=== PATIENT | male | born 1945 | race Caucasian/White ===

== ENCOUNTER → 2016-05-30 | Outpatient (CLI) | payer MEDICARE ==
--- NOTE | 2016-05-30 19:14 | PN ---
DATE OF SERVICE: 05/30/2016 This patient is a 71-year-old gentleman who has been followed in the sleep center for treatment of obstructive sleep apnea/hypopnea syndrome. Patient continues to use CPAP machine every night. Recently he found that there were several episodes during the night when his machine stopped working. I checked his CPAP unit. CPAP pressure is 9 cm of water, RAMP 30 minutes. Usage is every night, with 22 out of 30 nights for more than 4 hours. Apnea-hypopnea index reading from the machine is only 1.2, which is normal. Leak is 16 L/minute, which is acceptable. [place] Sleepiness Scale is 8. MEDICATIONS: 1. Gabapentin. 2. Tramadol. 3. Allopurinol. 4. Flomax. 5. Amlodipine. 6. Levothyroxine. 7. Hydrocodone. 8. Niacin. PHYSICAL EXAMINATION: GENERAL: Patient is in no distress. VITAL SIGNS: BP 140/75, HR 84, RR 16. Height 5 feet 8 inches. Weight 239. BMI 36.3. Neck 17 inches. Temperature 97.6. Oxygen saturation at room air 95%. HEENT: PERRLA, EOMI. Evaluation of oropharynx showed tongue protrudes midline; moderately low position of soft palate. NECK: Supple. No JVD. Thyroid is not palpable. LUNGS: Clear to percussion and to auscultation. Good air exchange. No wheezing or rhonchi. HEART: S1, S2 regular. No murmurs, gallops or rubs. ABDOMEN: Obese. EXTREMITIES: Up to 1+ ankle edema. CASINO SHIFT MANAGER: Awake, alert, and oriented x3. Cranial nerves 2 to 7 intact. There is no fasciculation or atrophy noted. No focal deficits observed. IMPRESSION: 1. Obstructive sleep apnea-hypopnea syndrome. Patient demonstrated good compliance with treatment and is benefitting from treatment. 2. Patient's CPAP unit has had several episodes when it stopped working during the sleep. 3. Hypertension. 4. Hypothyroidism. 5. Allergies. 6. Obesity. Patient's weight has increased by about 5 pounds since his previous visit. PLAN: 1. Prescription to check, if necessary replace, CPAP unit. CPAP pressure 9 cm of water. 2. Losing weight. 3. Sleep hygiene with regular time in bed for at least 8 hours. 4. No driving if feeling any sleepiness. Thank you very much for allowing me to participate in the management of your patient. Sincerely, Roberto Boyer MD, PhD, FAASM. Diplomat of [place] [employer], Sleep Medicine Board by [place] [employer], [place] [employer]
== END | disposition home or self-care (01) ==
LOC: SLEEP 14:48
PROVIDERS: ATTEND Internal Medicine
DX: G47.33 Obstructive sleep apnea (adult) (pediatric) (principal); I10 Essential (primary) hypertension; E03.9 Hypothyroidism, unspecified; Z91.09 Other allergy status, other than to drugs and biological substances; E66.9 Obesity, unspecified; Z68.36 Body mass index [BMI] 36.0-36.9, adult; Z79.899 Other long term (current) drug therapy

== ENCOUNTER → 2018-08-26 | Outpatient (CLI) | payer MEDICARE ==
--- NOTE | 2018-08-26 15:28 | SFUN ---
SLEEP CENTER FOLLOW UP NOTE DATE OF SERVICE: 08/26/2018 A 73-year-old gentleman who has been followed in the Sleep Center for treatment of obstructive sleep apnea-hypopnea syndrome. The patient continued to use his CPAP equipment every night but recently started to feel some headache in the morning after using CPAP in the sinuses area. [place] Sleepiness Scale today is 11. The patient has lost 5 pounds since previous visit which was in the beginning of 2017. I checked patient's CPAP unit. CPAP pressure is 9 cm of water. The patient using machine every night 29/30 nights and 25/30 nights for more than 4 hours with average usage 5.8 hours. Leak is 7 L/minute which is minimal. Apnea-hypopnea index is 1.2, which is normal. MEDICATIONS: Gabapentin, tramadol, Flomax, allopurinol, amlodipine, levothyroxine, hydrocodone, niacin. PHYSICAL EXAM: Patient in no distress. BP 135/79, HR 59, RR 18, height 5 foot 10-1/2 inches. Weight 234.8 pounds, temperature 97.7, oxygen saturation at room air 94%. Low position of soft palate. Mallampati 3. ABDOMEN: Slightly obese. GENERAL A pleasant patient without any distress. Neck Supple, no JVD. Thyroid is not palpable. LUNGS Clear to percussion and to auscultation. Good air exchange. No wheezing or rhonchi. HEART S1, S2 regular. No murmurs, gallops, or rubs. EXTREMITIES No clubbing or cyanosis. ASSEMBLER TRACTOR Awake, alert, and oriented X3. Cranial nerves 2 to 7 intact. There is no fasciculation or atrophy. noted. No focal deficits observed. IMPRESSION: 1. Obstructive sleep apnea-hypopnea syndrome. Patient demonstrated great compliance with treatment, benefitting from treatment. 2. Sometimes episodes of headaches in the morning after awakenings. 3. Hypertension. 4. Hypothyroidism. 5. Obesity. 6. Allergies. PLAN: 1. I will decrease pressure in the machine down to 8 cm of water. 2. Patient will continue to use equipment every night. 3. Continue losing weight. 4. Sleep hygiene with regular time in bed for at least 8 hours. 5. If patient to continue to have discomfort in the morning, return back for followup visit in several weeks. I will adjust pressure lower. Thank you very much for allowing me to participate in the management of your patient. Sincerely, Roberto Boyer MD, PhD, FAASM Diplomat of [place] [employer] [place] [employer] Dairy Bacteriologist of [facility] [place] MMASTON / ESN: [id number] /
== END | disposition home or self-care (01) ==
LOC: SLEEP 13:14
PROVIDERS: ATTEND Internal Medicine
DX: G47.33 Obstructive sleep apnea (adult) (pediatric) (principal); I10 Essential (primary) hypertension; E03.9 Hypothyroidism, unspecified; E66.9 Obesity, unspecified; T78.40XA Allergy, unspecified, initial encounter; Z99.89 Dependence on other enabling machines and devices; Z79.891 Long term (current) use of opiate analgesic; Z79.899 Other long term (current) drug therapy

== ENCOUNTER → 2020-01-05 | Outpatient (CLI) | payer MEDICARE ==
--- NOTE | 2020-01-05 08:10 | CT ---
EXAMINATION TYPE: CT sinus wo con DATE OF EXAM: 01/05/2020 COMPARISON: NONE HISTORY: headache, sinus pain per order. CT DLP: 622.3 mGycm. Automated Exposure Control for Dose Reduction was Utilized. TECHNIQUE: CT scan of the sinuses is performed without contrast, axial images are obtained, coronal r eformatted images are also reviewed. FINDINGS: Mild to moderate mucosal thickening involving the maxillary sinuses bilaterally with some d ependent ovoid fluid that has patchy aeration in the left maxillary sinus and 8mm mucous retention cy st or polyp in the inferior right maxillary sinus. Evidence of prior paranasal sinus surgery with pat ent ostiomeatal complex bilaterally that has some mild to moderate antral mucosal thickening. Moderat e mucosal thickening in the left frontal sinus with inferior lobulated mucosal thickening and/or flui d. Mild to moderate mucosal thickening inferior right frontal sinus. Dense opacification in anterior left ethmoid sinuses with mild to moderate mucosal thickening left greater than right ethmoid sinuses . Osseous nasal septum shows some bony erosive change. Visualized portion of mastoid air cells show no abnormal opacification. The globes are intact bilate rally. Visualized portion of brain parenchyma shows moderate age-related atrophy. IMPRESSION: Recurrent mild acute on mild to moderate chronic paranasal sinus disease as detailed abov e despite prior paranasal sinus surgery.
== END | disposition home or self-care (01) ==
LOC: RADCTMAIN 07:27
PROVIDERS: ATTEND Internal Medicine
DX: J32.9 Chronic sinusitis, unspecified (principal); R51.9 Headache, unspecified
CPT/HCPCS: 70486

== ENCOUNTER → 2020-02-14 | Outpatient (CLI) | payer MEDICARE | END | disposition home or self-care (01) | LOC: LABWHC1 10:08 | PROVIDERS: ATTEND Psychiatry & Neurology Neurology | DX: Z01.812 Encounter for preprocedural laboratory examination (principal); Z20.828 Contact with and (suspected) exposure to other viral communicable diseases | CPT/HCPCS: U0003; C9803 ==

== ENCOUNTER 2020-03-23 11:38 | Day surgery (SDC) | payer MEDICARE ==
[2020-03-22 10:54] VITALS: BMI 32.1
[~2020-03-23 11:38] MED LIST: DEXAMETHASONE SOD PHOSPHATE 4 MG/ML 1 ML VIAL IV ONE; DEXAMETHASONE SOD PHOSPHATE 4 MG/ML 1 ML VIAL IV PRN; FAMOTIDINE 20 MG/2 ML VIAL IV PRN; LACTATED RINGERS 1,000 ML IV SCH; ONDANSETRON 4 MG/2 ML VIAL IVP ONE; ONDANSETRON 4 MG/2 ML VIAL IVP PRN
[2020-03-23] MEDS: OXYMETAZOLINE 0.05% NASL SPRAY 1 SPRAY BOTTLE EA NOSTRIL PRN ×5 (12:14→12:35)
[2020-03-23] MEDS ORDERED: ROCURONIUM 10 MG/ML (10 ML VIAL) IV ONE (13:13)
[2020-03-23] MEDS ORDERED: PHENYLEPHRINE-0.9% NACL SYG 1,000 MCG/10 ML SYRINGE ONE (13:13)
[2020-03-23] MEDS ORDERED: GLYCOPYRROLATE 0.2 MG/ML 2 ML VIAL ONE (13:13)
[2020-03-23] MEDS ORDERED: LIDOCAINE 1% INJ 10MG/ML (20 ML MDV) ONE (13:13)
[2020-03-23] MEDS ORDERED: MIDAZOLAM 2 MG/2 ML VIAL ONE (13:13)
[2020-03-23] MEDS ORDERED: PROPOFOL 10 MG/ML 20 ML VIAL IV ONE (13:13)
[2020-03-23] MEDS ORDERED: ESMOLOL 100 MG/10 ML VIAL ONE (13:13)
[2020-03-23] MEDS ORDERED: NEOSTIGMINE 1 MG/ML 10 ML VIAL ONE (13:13)
[2020-03-23] MEDS ORDERED: ePHEDrine SULFATE/0.9% NACL/PF 50 MG/5 ML SYRINGE IV ONE (13:13)
[2020-03-23] MEDS ORDERED: SUCCINYLCHOLINE CHLORIDE 100 MG/5 ML SYR IV ONE (13:13)
[2020-03-23] MEDS ORDERED: fentaNYL (PF) 50 MCG/ML 2 ML AMP ONE (13:13)
[2020-03-23] MEDS ORDERED: EPINEPHrine 1 MG/ML 1 ML AMP TOPICAL ONE (14:08)
[2020-03-23] MEDS ORDERED: BUPIVACAIN-EPI 0.5%-1:200,000 30 ML VIAL SQ ONE (14:08)
[2020-03-23] MEDS ORDERED: LIDOCAINE 1%-EPI 1:100,000 20 ML VIAL SQ ONE (14:08)
[2020-03-23] MEDS ORDERED: BACITRACIN ZINC 500 UNIT/GM OINT 28.4 GM TUBE TOPICAL ONE (14:11)
[2020-03-23] MEDS ORDERED: FLUORESCEIN STRIPS 1 MG STRIP MISCELLANE ONE (14:11)
--- NOTE | 2020-03-23 14:52 | P.OP ---
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 He's been on multiple courses of antibiotics and Flonase nasal spray. CAT scan shows chronic maxillary ethmoid and frontal sinusitis with obstruction and polyposis. Surgical correction is recommended. All risks, benefits, and alternative therapies were discussed. Consent was obtained and all questions were answered. He has failed medical therapy and has been on multiple m edications with no improvement. Operative Findings: Patient was found have polyposis intranasally and the maxillary ethmoid and frontal sinuses the left frontal sinus was particularly bad and there was some bony erosion from the polyposis along the medial wall of the nasal frontal duct caused by the polyps. Description of Procedure: This patient was taken to the operative room and placed in the supine position. A general inhalation anesthetic was administered the patient by mask and subsequently intubated with a cuffed endotracheal tube by the department of anesthesia with a functioning IV line in place. The patient was monitored throughout the entire case by the department of anesthesia. A sphenopalatine nerve block was performed along with injection of lidocaine and bupivacaine with epinephrine along the middle turbinate and lateral nasal wall and inferior turbinates. 10 minutes were allowed wait for full vasoconstrictive effects to take place. The patient was placed in a reversed Trendelenburg position. Nasal hairs were removed and with use of a 0 and 30 Tinajero jr scope the nose was entered. Infraturbinal maxillary antrostomies were performed with use of a Taiwo and the maxillary sinuses were entered bilaterally. Diseased tissue was removed from the maxillary sinuses bilaterally along with polypoid material. The infraturbinal maxillary antrostomies were nicely opened and all diseased tissue was removed. We then focused upward and intranasal polyps were removed with the microdebrider. We then entered the ethmoid sinuses and a total ethmoidectomy bilaterally with removal of ethmoid polyps. All ethmoid septations were removed both anteriorly and posteriorly and all polypoid disease was removed with use of a Tinajero jr scope and a microdebrider utilizing a 4 mm blade. Attention was then paid to the nasal frontal duct where we inserted a balloon catheter utilizing the yetu system and ballooned open the frontal sinuses bilaterally we then entered the frontal sinuses and we remove diseased tissue from the frontal sinuses and polyps. A large amount of purulent material was removed. After all the purulent material was removed and the nasal frontal ducts were opened and diseased tissue was removed we inserted propel many on the left side. This was deep the left nasal frontal duct open which was tight. We then inserted propel bilaterally and then Surgicel powder was then instilled and excellent hemostasis was obtained. Patient tolerated this well and follow-up will be in the office in 1 week. No nasal packing was placed.
[2020-03-23] MEDS: HYDROmorphone 0.5 MG/0.5 ML SYRINGE IVP PRN ×4 (14:55→15:33)
[2020-03-23] MEDS ORDERED: LACTATED RINGERS 1,000 ML IV ONE ×2 (15:00)
[2020-03-23] MEDS ORDERED: hydrALAZINE HCL 20 MG/ML 1 ML VIAL IVP ONE (15:04)
[2020-03-23 15:08] VITALS: TEMP 97.7
[2020-03-23] MEDS ORDERED: amLODIPine 10 MG TAB PO STA (15:15)
[2020-03-23] MEDS ORDERED: LABETALOL SYRINGE 5 MG/ML IVP ONE (15:26)
[2020-03-23] MEDS ORDERED: GABAPENTIN 100 MG CAP PO STA (16:46)
[2020-03-23] MEDS ORDERED: traMADol 50 MG TAB PO STA (16:47)
[2020-03-23] MEDS ORDERED: ACETAMINOPHEN TAB 500 MG TAB PO STA (16:55)
[2020-03-23] MEDS ORDERED: MELOXICAM 7.5 MG TAB PO SCH (17:00)
[2020-03-23] MEDS ORDERED: MELOXICAM 7.5 MG TAB PO ONE ×2 (17:02)
[2020-03-23] MEDS ORDERED: oxyCODONE-APAP 5-325MG 1 EACH TAB ONE (17:40)
[2020-03-23] MEDS ORDERED: oxyCODONE-APAP 5-325MG 1 EACH TAB PO ONE ×2 (17:42)
[2020-03-23] MEDS ORDERED: ENALAPRILAT 1.25 MG/ML 1 ML VIAL IVP ONE (17:52)
[2020-03-23] MEDS ORDERED: NITROGLYCERIN 0.2MG/HR PATCH TRANSDERM STA (17:54)
[2020-03-23 18:42] VITALS: RESP 18
[2020-03-23 19:11] VITALS: BP 143/95; PULSE 88
== END 2020-03-23 19:26 | disposition home or self-care (01) ==
LOC: OR 11:38
PROVIDERS: ATTEND Otolaryngology
DX: J32.8 Other chronic sinusitis (principal); J33.9 Nasal polyp, unspecified; G47.30 Sleep apnea, unspecified; Z98.890 Other specified postprocedural states; E78.5 Hyperlipidemia, unspecified; G47.33 Obstructive sleep apnea (adult) (pediatric); E07.9 Disorder of thyroid, unspecified; Z86.718 Personal history of other venous thrombosis and embolism; I10 Essential (primary) hypertension; Z87.19 Personal history of other diseases of the digestive system; Z82.3 Family history of stroke; Z83.49 Family history of other endocrine, nutritional and metabolic diseases; Z80.1 Family history of malignant neoplasm of trachea, bronchus and lung; Z80.3 Family history of malignant neoplasm of breast; Z83.42 Family history of familial hypercholesterolemia; Z83.52 Family history of ear disorders; Z83.79 Family history of other diseases of the digestive system; Z79.890 Hormone replacement therapy; Z79.891 Long term (current) use of opiate analgesic; Z79.899 Other long term (current) drug therapy; Z91.048 Other nonmedicinal substance allergy status; Z91.09 Other allergy status, other than to drugs and biological substances; Z88.1 Allergy status to other antibiotic agents
CPT/HCPCS: 31267; 31253; C2625 ×2; C1726; J2250; J0171; J0360; J1100; J2710; J2405; J2001; J3010; J2370; J0330; J2704; J1170

== ENCOUNTER → 2023-12-30 | Outpatient (CLI) | payer MEDICARE ==
--- NOTE | 2023-12-30 13:53 | CT ---
EXAMINATION TYPE: CT abdomen pelvis wo con CT DLP: 1006 mGycm, Automated exposure control for dose reduction was used. DATE OF EXAM: 12/30/2023 1:40 PM COMPARISON: None CLINICAL INDICATION:Male, 78 years old with history of R10.84 GENERALIZED ABDOMINAL PAIN; bilateral f lank pain TECHNIQUE: Standard CT of the abdomen and pelvis without IV or oral contrast. Lack of IV or oral co ntrast limits evaluation of solid and hollow organ viscera. Coronal and sagittal reformats were perfo rmed. FINDINGS: LOWER CHEST: Bilateral basilar subpleural reticulations consistent with fibrotic changes. ABDOMEN LIVER: Couple of hypodense lesions within the liver most consistent with cysts. GALLBLADDER AND BILE DUCTS: Contracted gallbladder. No biliary ductal dilatation. PANCREAS: Unremarkable noncontrast appearance. SPLEEN: Unremarkable noncontrast appearance. ADRENAL GLANDS: Unremarkable noncontrast appearance.. KIDNEYS AND URETERS: No evidence of hydronephrosis . No right renal calculi. Nonobstructive left nicole l 3 mm calculus. Bilateral renal hypodense lesions with largest on the right measuring 2.9 cm and lar gest on the left measuring 3.1 cm and are most consistent with cysts. No ureteral calculus. Nonspecif ic bilateral perinephric fat stranding. PELVIS BLADDER: Incompletely distended but grossly unremarkable. REPRODUCTIVE: Unremarkable. ABDOMEN & PELVIS STOMACH AND BOWEL: Stomach and duodenum are unremarkable. Extensive distal colonic diverticulosis wit hout evidence for acute diverticulitis. Additional scattered regions of diverticulosis to the remaini ng colon. The appendix is not identified however no significant inflammatory changes within the right lower quadrant. No evidence of bowel obstruction. PERITONEUM: No evidence of pneumoperitoneum or free fluid. VASCULATURE: Moderate atherosclerotic calcifications are present throughout the abdominal aorta and i ts branches. No evidence of aortic aneurysm. Pelvic phleboliths. MUSCULOSKELETAL: No acute osseous abnormalities LYMPH NODES: No gross evidence for lymphadenopathy. SOFT TISSUE/ABDOMINAL WALL: Left lower back generator powerpack with 2 leads entering the spinal john l in the interspinous space at T11-T12 extending superiorly within the spinal canal. IMPRESSION: 1. No acute abdominal/pelvic process within limitations of a noncontrast exam. 2. Nonobstructive right renal calculus. 3. Pancolonic diverticulosis without evidence for acute diverticulitis. [facility], , 12/30/2023 1:51 PM
== END | disposition home or self-care (01) ==
LOC: RADCTMAIN 13:00
PROVIDERS: ATTEND Internal Medicine
DX: N20.0 Calculus of kidney (principal); K57.30 Diverticulosis of large intestine without perforation or abscess without bleeding; I70.0 Atherosclerosis of aorta
CPT/HCPCS: 74176

== ENCOUNTER 2024-03-04 13:02 | Day surgery (SDC) | payer MEDICARE ==
[2024-03-04] MEDS ORDERED: LIDOCAINE 1% (10MG/ML) FOR IV START INTRADERMA PRN (13:39)
[2024-03-04] MEDS: IV FLUID CONTINUATION 1,000 ML IV ONE (13:51)
[2024-03-04 13:54] VITALS: TEMP 97.4
[2024-03-04] MEDS: LACTATED RINGERS 1,000 ML IV SCH (14:05)
[2024-03-04] MEDS ORDERED: PROPOFOL 10 MG/ML 20 ML VIAL IV ONE (15:02)
--- NOTE | 2024-03-04 15:06 | P.GSHP ---
History of Present Illness H&P Date: 03/04/24 Chief Complaint: Diverticulitis 78-year-old male with history of known diverticulitis. Apparently was having some left-sided pain in December. CAT scan was done showing diverticulosis without inflammation. Patient still having mild intermittent left lower quadrant pains. Last colonoscopy 10 years ago. No family history of colon cancer. 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 DVT in leg years ago after travel, rash on right calf , elevated uric acid, History of Any Multi-Drug Resistant Organisms: None Reported Additional Past Surgical History / Comment(s): PRECANCEROUS LESIONS REMOVED FROM LIP, sinus surg. x2, deviated septum repair, neurotransmitter inserted lower left back for pain battery is depleted Past Anesthesia/Blood Transfusion Reactions: No Reported Reaction Smoking Status: Never smoker - Past Family History Sister(s) Family Medical History: Cancer Additional Family Medical History / Comment(s): LEUKEMIA Mother Family Medical History: CVA/TIA, Myocardial Infarction ([place]) Additional Family Medical History / Comment(s): AT AGE 85 Father Family Medical History: Cancer, Hypertension Additional Family Medical History / Comment(s): MELANOMA-STILL ALIVE AT AGE 88 Medications and Allergies Home Medications Medication Instructions Recorded Confirmed Type Gabapentin [Neurontin] 100 mg PO BID 01/20/15 03/04/24 History Levothyroxine Sodium [Synthroid] 100 mcg PO HS 01/20/15 03/04/24 History Niacin [Niaspan] 1,000 mg PO DAILY 01/20/15 03/04/24 History Tamsulosin [Flomax] 0.4 mg PO DAILY 01/20/15 03/04/24 History allopurinoL [Zyloprim] 100 mg PO DAILY 01/20/15 03/04/24 History traMADol HCl [Ultram] 25 mg PO BID 01/20/15 03/04/24 History Cholecalciferol [Vitamin D3 (25 25 mcg PO DAILY 03/22/20 03/04/24 History Mcg = 1000 Iu)] Melatonin 10 mg PO HS PRN 03/22/20 03/04/24 History B Complex(Unk) 1 tab PO DAILY 03/02/24 03/04/24 History Ezetimibe [Zetia] 10 mg PO DAILY 03/02/24 03/04/24 History Furosemide [Lasix] 20 mg PO HS 03/02/24 03/04/24 History Losartan [Cozaar] 25 mg PO DAILY 03/02/24 03/04/24 History Multivitamins, Thera [Multivitamin 1 tab PO DAILY 03/02/24 03/04/24 History (formulary)] Natocinase (Unk) 1 dose PO DAILY 03/02/24 03/04/24 History Tumeric 1,500 mg PO DAILY 03/02/24 03/04/24 History Allergies Allergy/AdvReac Type Severity Reaction Status Date / Time cephalexin AdvReac trouble Verified 03/04/24 13:47 urinating Surgical - Exam Vital Signs Temp Pulse Resp BP Pulse Ox 97.4 F L 101 H 18 121/77 95 03/04/24 13:45 03/04/24 13:45 03/04/24 13:45 03/04/24 13:45 03/04/24 13:45 Physical exam: General: Well-developed, well-nourished HEENT: Normocephalic, sclerae nonicteric Abdomen: Nontender, nondistended Extremities: No edema Neuro: Alert and oriented Assessment and Plan (1) Diverticulitis Narrative/Plan: Will proceed with colonoscopy at this time. Current Visit: Yes Status: Acute Code(s): K57.92 - DVTRCLI OF INTEST, PART UNSP, W/O PERF OR ABSCESS W/O BLEED SNOMED Code(s): 015247544
--- NOTE | 2024-03-04 15:30 | P.PCN ---
Date of Procedure: 03/04/24 Procedure(s) Performed: PREOPERATIVE DIAGNOSIS: Diverticulitis POSTOPERATIVE DIAGNOSIS: Colon polyps, diverticulosis PROCEDURE: Colonoscopy with snare polypectomy and clip placement ANESTHESIA: MAC SURGEON: Davion Galan M.D. SPECIMENS: Polyps ENDOSCOPIC PROCEDURE: The patient was placed on the endoscopy table in the left decubitus position. The Olympus colonoscope was inserted into the anus and passed under direct visualization to the base of the cecum. The appendiceal orifice was visualized. From that point the scope was slowly withdrawn inspecting all surfaces carefully. The patient had 2 polyps in the base of the cecum. One was smaller measuring about 6 mm the other was about 8 to 9 mm. The larger of the 2 polyps had a small amount of oozing and a clip was deployed there with no further bleeding. Opposite the ileocecal valve and the ascending colon there was a 1.2 cm polyp that was removed. 2 additional smaller polyps were adjacent to that each measuring only about 4 to 5 mm in size. These were all removed using the snare with cautery technique. No bleeding was seen. In the proximal transverse colon a small polyp was removed in a similar fashion. The remainder of the transverse descending sigmoid and rectum appeared normal with exception of left-sided diverticulosis. Digital rectal examination was normal. The patient was taken to the recovery room in stable condition per anesthesia guidelines. RECOMMENDATIONS: Await biopsy results. Given the numerous polyps seen recommend short-term repeat colonoscopy 1 year pending pathology results.
[2024-03-04 16:02] VITALS: BP 133/91; PULSE 84; RESP 16
== END 2024-03-04 16:16 | disposition home or self-care (01) ==
LOC: ORWHC2ENDO 13:02
PROVIDERS: ATTEND Surgery
DX: K57.30 Diverticulosis of large intestine without perforation or abscess without bleeding (principal); D12.3 Benign neoplasm of transverse colon; D12.2 Benign neoplasm of ascending colon; D12.0 Benign neoplasm of cecum; I10 Essential (primary) hypertension; E78.5 Hyperlipidemia, unspecified; G47.33 Obstructive sleep apnea (adult) (pediatric); E03.9 Hypothyroidism, unspecified; Z79.890 Hormone replacement therapy; Z79.899 Other long term (current) drug therapy; Z86.718 Personal history of other venous thrombosis and embolism; Z88.1 Allergy status to other antibiotic agents
CPT/HCPCS: 88305; 45385; J2704

== ENCOUNTER → 2024-06-16 | Outpatient (CLI) | payer MEDICARE ==
[2024-06-16 13:46] VITALS: BP 119/74; PULSE 110; RESP 16; TEMP 98.3
--- NOTE | 2024-06-16 14:27 | P.SLEEP ---
History of Present Illness DATE: 06/16/2024 CONSULTATION/NEW PATIENT EVALUATION HISTORY OF PRESENT ILLNESS/SLEEP-WAKE EVALUATION: 79-year-old gentleman had be en evaluated in the sleep center for obstructive sleep apnea hypopnea syndrome. Last time I saw the patient in 08/26/2018 for treatment of obstructive sleep apnea hypopnea syndrome. Patient continued to use his CPAP equipment. SLEEP SCHEDULE: Usually sleep schedule from midnight until 6:30 AM. FALLING ASLEEP: Sometimes patient has difficulties with falling asleep. DURING SLEEP: Patient has insomnia problems. He is using CPAP equipment every night. No snoring with CPAP. Patient may wake up from sleep up to 3 times with 2 episodes of nocturia. No history of hypnogogical hallucinations, sleep paralysis, or cataplexy. DURING THE DAY/WAKE STATE: In the morning patient may feel tiredness and sleepiness. [place] sleepiness scale is increased to 12. Patient takes nap at 2 PM. PAST MEDICAL HISTORY: Hypertension, hypothyroidism, gout, BPH, allergies. PAST SURGICAL HISTORY: Please see below. MEDICATIONS: Please see below. SOCIAL HISTORY: Please see below. FAMILY HISTORY: Please see below. REVIEW OF SYSTEMS: Awakenings from sleep, no snoring with CPAP, sleepiness during the day. No fevers. No double vision. No recent chest pain. No shortness of breath. No abdominal pain. No bleeding episodes. No blood in urine. No seizure episodes. PHYSICAL EXAMINATION: GENERAL: A pleasant patient without any distress. VITAL SIGNS: See below weight 226 pounds, BMI 33.8. HEENT: PERRLA, EOMI. Evaluation of oropharynx showed tongue protrudes midline, low position of soft palate Mallampati 3. NECK: Supple. No JVD. Thyroid is not palpable. 17.5 inches in circumference. LUNGS: Clear to percussion and to auscultation. Good air exchange. No wheezing or rhonchi. HEART: S1, S2 regular. No murmurs, gallops or rubs. ABDOMEN: Soft and nontender. Bowel sounds are present. No organomegaly appreciated. EXTREMITIES: No clubbing or cyanosis. CHEMICAL DEPENDENCY NURSE: Awake, alert, and oriented x3. Cranial nerves 2 to 7 intact. There is no fasciculation or atrophy noted. No focal deficits observed. I checked CPAP unit. CPAP pressure 7.8 cm of water. Usage is 100% of nights, average 7.1 hours per night. Leak increased to 41 L/min. Apnea hypopnea index 1.6, which is normal. ASSESSMENT: 1. Obstructive sleep apnea hypopnea syndrome for many years. Patient demonstrated 100% compliance with treatment. Benefiting from treatment. CPAP unit is old. Motor life expectancy was exceeded. Noisy. 2. Hypertension. 3. Hypothyroidism. 4. Mild obesity BMI 33.8. 5 gout. 6 . BPH. 7. Allergies. PLAN: 1. Prescription to replace CPAP unit. 2. To continue to use CPAP equipment every night for the whole night. 3. Preferable position during sleep on the side. 4. No driving if patient feels any sleepiness. Patient is aware of civil and c riminal liability for unsafe driving. 5. Sleep hygiene with regular sleep time for at least 7.5-8 hours. 6. Watching weight. 7. Follow-up visit in 30-90 days after patient. To use new CPAP equipment to evaluate clinical response on treatment, compliance with treatment and [place] adjustments related to mask fitting pressure and humidification. Thank you very much for referring this patient for consultation. Sincerely, Roberto Boyer MD, PhD, FAASM. Diplomat of [place] [employer], Sleep Medicine Board by [place] [employer] Historiographer of [facility] [place] cc: Hima Hernandez MD Past Medical History Past Medical History: Deep Vein Thrombosis (DVT), Hyperlipidemia, Hypertension, Renal Disease, Skin Disorder, Sleep Apnea/CPAP/BIPAP Additional Past Medical History / Comment(s): USES CPAP,NEUROPATHY LOWER SPINE AND GROIN AFTER SHINGLES 2011,DIVERTICULITIS, used to take BP med but was d/c last summer, past hx. DVT in leg years ago after travel, rash on right calf History of Any Multi-Drug Resistant Organisms: None Reported Additional Past Surgical History / Comment(s): PRECANCEROUS LESIONS REMOVED FROM LIP, sinus surg. x2, deviated septum repair, neurotransmitter inserted lower left back for pain about 3-4 weeks ago Past Anesthesia/Blood Transfusion Reactions: No Reported Reaction Past Psychological History: No Psychological Hx Reported Smoking Status: Never smoker Past Alcohol Use History: None Reported Past Drug Use History: None Reported - Past Family History Sister(s) Family Medical History: Cancer Additional Family Medical History / Comment(s): LEUKEMIA Mother Family Medical History: CVA/TIA, Myocardial Infarction ([place]) Additional Family Medical History / Comment(s): AT AGE 85 Father Family Medical History: Cancer, Hypertension Additional Family Medical History / Comment(s): MELANOMA-STILL ALIVE AT AGE 88 Medications and Allergies Home Medications Medication Instructions Recorded Confirmed Type Gabapentin [Neurontin] 100 mg PO BID 01/20/15 03/04/24 History Levothyroxine Sodium [Synthroid] 100 mcg PO HS 01/20/15 06/16/24 History Niacin [Niaspan] 1,000 mg PO DAILY 01/20/15 03/04/24 History Tamsulosin [Flomax] 0.4 mg PO DAILY 01/20/15 06/16/24 History allopurinoL [Zyloprim] 100 mg PO DAILY 01/20/15 06/16/24 History traMADol HCl [Ultram] 25 mg PO BID 01/20/15 03/04/24 History Cholecalciferol [Vitamin D3 (25 25 mcg PO DAILY 03/22/20 06/16/24 History Mcg = 1000 Iu)] Melatonin 10 mg PO HS PRN 03/22/20 06/16/24 History B Complex(Unk) 1 tab PO DAILY 03/02/24 06/16/24 History Ezetimibe [Zetia] 10 mg PO DAILY 03/02/24 06/16/24 History Furosemide [Lasix] 20 mg PO HS 03/02/24 06/16/24 History Losartan [Cozaar] 25 mg PO DAILY 03/02/24 06/16/24 History Multivitamins, Thera [Multivitamin 1 tab PO DAILY 03/02/24 06/16/24 History (formulary)] Natocinase (Unk) 1 dose PO DAILY 03/02/24 06/16/24 History Tumeric 1,500 mg PO DAILY 03/02/24 06/16/24 History Allergies Allergy/AdvReac Type Severity Reaction Status Date / Time cephalexin AdvReac trouble Verified 03/04/24 13:47 urinating Physical Exam Vitals: Vital Signs Temp Pulse Resp BP Pulse Ox 06/16/24 13:44 98.3 F 110 H 16 119/74 95 Intake and Output 06/15/24 06/16/24 06/16/24 22:59 06:59 14:59 Other: Weight 102.512 kg Sleep Note - Sleep Data ESS Total: 12 - Sleep Note Sleep Note: Temperature: 98.3 F Pulse Rate: 110 Respiratory Rate: 16 Blood Pressure: 119/74 SpO2: 95 Height: 5 ft 8.5 in Weight: 102.512 kg BMI: Neck Circumference: 17.5
== END ==
LOC: 3 N SLEEP 13:36
PROVIDERS: ATTEND Internal Medicine
DX: G47.33 Obstructive sleep apnea (adult) (pediatric) (principal); I10 Essential (primary) hypertension; E03.9 Hypothyroidism, unspecified; M10.9 Gout, unspecified; N40.0 Benign prostatic hyperplasia without lower urinary tract symptoms; E66.9 Obesity, unspecified; Z68.33 Body mass index [BMI] 33.0-33.9, adult; T78.40XA Allergy, unspecified, initial encounter; Z99.89 Dependence on other enabling machines and devices; Z88.1 Allergy status to other antibiotic agents
CPT/HCPCS: 99211

== ENCOUNTER → 2024-07-19 | Outpatient (CLI) | payer MEDICARE ==
--- NOTE | 2024-07-21 11:59 | P.PCN ---
Description of Procedure: CLINICAL: A home sleep apnea test has been done for confirmation of possible obstructive sleep apnea-hypopnea syndrome. DESCRIPTION OF PROCEDURE: RESULTS: Recording time was 8 hours 02 minutes. Evaluation time was 7 hours 50 minutes. Evaluation time is sufficient for making conclusion about results of the test. Raw data of sleep recording has been reviewed and is adequate. Respiratory channel showed 38 apneas and 69 hypopneas. Apnea-hypopnea index was 13.6 per hour. Pulse rate in the range between minimum 56, maximum 210, average 66 by computer calculation. Lowest desaturation was 73%. IMPRESSION: 1. Obstructive Sleep Apnea Hypopnea Syndrome. 2. Hypertension. Please see other impressions from consultation. PLAN: 1. The patient will get new auto-PAP unit and she will continue treatment with CPAP every night for the whole night. 2. I will see patient for follow up visit to discuss results of the test, evaluate clinical response on treatment with PAP therapy and make any necessary adjustments related to mask fitting, pressure, and humidification. 3. Watching and losing weight. 4. Sleep hygiene with regular time in bed for at least 8 hours. 5. No driving if feeling any sleepiness. Thank you very much for allowing me to participate in the management of your patient. Sincerely, Roberto Boyer MD, PhD, FAASM Diplomat of [employer] [employer] Sleep Medicine Board of [place] [employer] [facility] [place] [facility] [place] cc: Hima Hernandez MD
== END ==
LOC: 3 N SLEEP 13:03
PROVIDERS: ATTEND Internal Medicine
DX: G47.33 Obstructive sleep apnea (adult) (pediatric) (principal); I10 Essential (primary) hypertension; Z88.1 Allergy status to other antibiotic agents